=== PATIENT | female | born 1960 | race Caucasian/White ===

== ENCOUNTER 2017-01-27 20:21 | Emergency (ER) | payer OTHER ==
[~2017-01-27] VITALS: Ht 167.6 cm; Wt 68.0 kg
[2017-01-27 20:25] VITALS: TEMP 36.7; Ht 167.6 cm; Wt 68.0 kg
[2017-01-27] MEDS ORDERED: IBUP-1050 PO (20:36)
--- NOTE | 2017-01-27 21:24 | DIAGNOSTIC IMAGING REPORT ---
LEFT FOREARM 2 VIEWS ROUTINE, LEFT HAND MIN 3 VIEWS ROUTINE CLINICAL HISTORY: Left hand pain s/p FOOSH. Left forearm pain. COMPARISON STUDY: None. FINDINGS: No fracture or dislocation. Soft tissues are unremarkable. No radiopaque foreign bodies. No elbow effusion. IMPRESSION: No fracture or dislocation within the left hand or left forearm. Electronically signed by: Pillo Almonte M.D. 01/27/2017 9:23 PM Dictated Date/Time: 01/27/2017 9:20 PM
--- NOTE | 2017-01-27 21:45 | EMERGENCY ROOM VISIT NOTE ---
History First contact with patient: 20:34 Chief Complaint: HEAD INJURY (MINOR) Stated Complaint: FALL IN HALLWAY, LUMP ON HEAD, L WRIST History of Present Illness The patient is a 56 year old female who presents to the Emergency Room via private vehicle accompanied by daughter with complaints of "fallen hallway, lump on head, left wrist". The patient states that 10 minutes prior to arrival , she was in the hallway here in the hospital leaving after visiting a family member, when she was being carried on her daughter's back when her daughter fell forward causing her to fall, landing on her left wrist, right forehead. She denies loss of consciousness. She rates the left wrist and right forehead pain as a 4/10. Her tetanus is up-to-date. She denies any nausea, vomiting, vision changes. She declined any pain medication. Review of Systems A complete 6-point Review of Systems was discussed with the patient, with pertinent positives and negatives listed in the History of Present Illness. All remaining Review of Systems questions can be considered negative unless otherwise specified. Past Medical/Surgical History Two hip replacements. Family History Cancer, lung disease. Social History Smoking Status: Never Smoker Social History: Patient is currently employed, lives at home with children. Feel safe at home. Admits to one pack of tobacco per day, and denies alcohol use. Current/Historical Medications Scheduled PRN Ibuprofen (Advil), 800 MG PO BID PRN for Headache or Pain Allergies Coded Allergies: Morphine (Verified Adverse Reaction, Mild, SEVERE GROGGINESS, 10/03/09) No Known Allergies (Verified , 09/28/03) Physical Exam Vital Signs Date Time Temp Pulse Resp B/P (MAP) Pulse Ox O2 Delivery O2 Flow Rate FiO2 01/27/17 21:52 76 20 132/74 98 01/27/17 20:28 18 01/27/17 20:25 36.7 83 18 122/84 98 Room Air Physical Exam VITAL SIGNS - Vital signs and nursing notes were reviewed. Patient is afebrile , normotensive, non-tachycardic and is saturating well on room air 98%. GENERAL -56-year-old female appearing her stated age. Communicates well with provider and answers questions appropriately. SKIN - Gross examination of the entire body surface demonstrates no lacerations to the body surface. There is a large contusion formation overlying the right anterior forehead. HEAD - Normocephalic, Atraumatic. No Balderrama's Sign or Raccoon's Eyes. No depressed skull fractures palpable. EYES - PERRL with EOMI bilaterally. Without subconjunctival hemorrhage. Palpebral conjunctiva pink and moist with no injection. EARS - No deformities of external structures noted on gross examination bilaterally. No hemotympanum present. No tympanic perforation noted. Handle of malleus, umbo, cone of light, pars tensa/flaccid all easily visualized. NOSE - Midline and without cyanosis. No epistaxis or clear watery discharge noted. Septum midline without deviation. No septal hematoma noted. No overlying ecchymosis noted. MOUTH/OROPHARYNX - Without perioral cyanosis. Tongue midline with equal elevation of palate bilaterally. No blood noted in the oropharynx. No tonsillar hypertrophy, erythema, or exudates noted. No dental fractures noted. NECK -there is tenderness to palpation over the cervical spinous processes of which the patient notes is unchanged from previous. She states this is chronic. No cervical paraspinal muscle tenderness noted. LUNGS - Chest wall symmetric without accessory muscle use, intercostals retractions, or central cyanosis. No flail chest or depressed fractures noted. No paradoxical chest wall movements noted. No tenderness to palpation across the anterior and posterior chest tinoco. Normal vesicular breath sounds CTA B/L. No wheezes, rales, or rhonchi appreciated. CARDIAC - RRR with S1/S2. No murmur, rubs, or gallops appreciated. ABDOMEN - Abdominal contour and without pulsations or visible masses. BS normoactive all four quadrants. No rebound tenderness or guarding noted. Negative Florencio's or [place] T[place]'s Signs. No tenderness, palpable masses, hepatosplenomegaly, or ascites noted. EXTREMITIES - No gross deformities noted of the extremities. There is tenderness to palpation overlying the distal dorsal wrist as well as hand. There is full range of motion of this region. She is neurovascularly intact throughout the extremities. +5/5 strength noted in UE/LE bilaterally. NEUROLOGIC - Cranial nerves II through XII grossly intact. Sensory intact to light touch throughout. Patellar reflexes +2/4. PSYCH - Pt is very pleasant and interacts well with examiner. Medical Decision & Procedures ER Provider Diagnostic Interpretation: LEFT FOREARM 2 VIEWS ROUTINE, LEFT HAND MIN 3 VIEWS ROUTINE CLINICAL HISTORY: Left hand pain s/p FOOSH. Left forearm pain. COMPARISON STUDY: None. FINDINGS: No fracture or dislocation. Soft tissues are unremarkable. No radiopaque foreign bodies. No elbow effusion. IMPRESSION: No fracture or dislocation within the left hand or left forearm. Electronically signed by: Pillo Almonte M.D. 01/27/2017 9:23 PM Dictated Date/Time: 01/27/2017 9:20 PM Medical Decision Patient was seen and evaluated as above. After getting a thorough history and physical examination radiographs were obtained of the left forearm and wrist. Benefits versus risk of obtaining CT head and neck were also discussed. At this time patient elected to forego CT scan of head and neck. She declined pain medication. Results as above. No fractures identified. She was offered splint and declined noting that she had one at home. I was able to review the foot edge of the patient's fall on the security cameras. There appeared to be a significant mechanism of injury which caused her neck to something move to the side and she laid on the floor for a period of time. I then went to the patient and stated that I strongly recommend a CT scan of the head and neck secondary to her mechanism of injury. He was also stated that she apparently after the event experienced a sensation that she was not herself. I again strongly recommended the patient a CT scan of the head and neck. The patient asked me if she had to get the CT scan and I informed her that she can refuse any test. I did want to make it clear that however that I do recommend strongly getting the CT scans. I was requested by the RN design supervisor to obtain a form stating that the patient declined these imaging modalities in the presence of strong medical inclinations. The patient signed the form without difficulty. She is to wear the splint that she has at home. She is to follow- up with her family doctor as well as her orthopod regarding today's injuries. She was educated upon worrisome symptoms which to return, had questions prior to discharge, was discharged home in good condition. In the evaluation and treatment of this patient, the following differential diagnoses were considered: Concussion, Contrecoup Injury, Brain Tumor, Depression, Encephalitis, Hypothyroidism, Meningitis, CVA, TIA, Migraine, Cluster Headache, Intracranial Abnormality, Intracranial Hemorrhage, Subdural Hematoma, Subarachnoid Hemorrhage, Hydrocephalus, Wrist Sprain, Wrist Fracture , Wrist Dislocation, Scapholunate Dissociation, Carpal Fracture, Metacarpal Fracture, Radial Styloid Process Fracture, Ulnar Styloid Process Fracture, or Carpal Tunnel Syndrome, among others. Impression Primary Impression: Closed head injury Additional Impressions: Fall Wrist pain, left Departure Information Dispostion Home / Self-Care Condition FAIR Referrals Samm Daniels PA-C (PCP) Patient Instructions My [facility] Additional Instructions You have been treated in the Emergency Department for a Fall, left hand. For pain control, you can use the following [id number] medicines (if >12 yo): - Regular strength (325mg/tab) Tylenol (acetaminophen) 2 tabs every 4-6 hours as needed. Do not exceed 12 tablets in a 24 hour period. Avoid taking more than 3 grams (3000 mg) of Tylenol per day. This includes any other sources of acetaminophen you may take on a regular basis. - Regular strength (200 mg/tab) Advil (ibuprofen) 1-2 tabs every 4-6 hours as needed. Do not exceed a dose of 3200 mg per day. You should relax in a quiet, dark place for the rest of the day. Avoid any possible triggers including: cigarette smoke, caffeine, nicotine, chocolate, wine, beer, loud noises or music, or bright lights. You should schedule a follow-up appointment in 2-3 days with your Primary Care Provider or established Neurologist for further evaluation and treatment of your Headache. Please follow-up with Dr. Rivera regarding your left wrist. Please wear your left wrist splint that you've indicated you have at home. Return to the Emergency Department if your current symptoms worsen despite treatment course outlined above, or if you develop any of the following symptoms : intractable pain despite aforementioned treatment course, visual disturbances , loss of vision, unilateral weakness or facial drooping, slurring of speech, loss of coordination, or loss of consciousness. Please return to the emergency department with any new/concerning symptoms. Problem Qualifiers
[2017-01-27 21:52] VITALS: BP 132/74; PULSE 76; O2SAT 98
== END 2017-01-27 21:53 | disposition home or self-care (01) ==
LOC: C.EDB 20:22 → C.EDD 21:53
DX: S09.90XA Unspecified injury of head, initial encounter (principal); M25.532 Pain in left wrist; W17.89XA Other fall from one level to another, initial encounter; Y92.238 Other place in hospital as the place of occurrence of the external cause; F17.210 Nicotine dependence, cigarettes, uncomplicated; Z96.649 Presence of unspecified artificial hip joint; Z80.9 Family history of malignant neoplasm, unspecified; Z83.6 Family history of other diseases of the respiratory system